=== PATIENT | female | born 1985 | race Caucasian/White ===

== ENCOUNTER 2017-08-15 09:44 | Emergency (ER) | payer OTHER ==
[~2017-08-15] VITALS: Ht 167.6 cm; Wt 76.7 kg
[2017-08-15] MEDS ORDERED: Norco 5-325 Ta1 EACH PO (10:19)
[2017-08-15] MEDS ORDERED: Augmentin 875-1 EACH PO (10:19)
[2017-08-15] MEDS ORDERED: MEDICAL MARIJUANA (10:46)
[2017-08-15] MEDS ORDERED: Bactrim Ds Tab1 EACH PO (10:56)
== END 2017-08-15 11:45 | disposition home or self-care (01) ==
LOC: ER 09:44
DX: N76.4 Abscess of vulva (principal); J45.909 Unspecified asthma, uncomplicated; F17.200 Nicotine dependence, unspecified, uncomplicated
CPT/HCPCS: 36415; 56420; 96374; 96375; 96376; 99284; J1170; J2060; J2405

== ENCOUNTER 2017-10-29 19:04 | Emergency (ER) | payer OTHER ==
[~2017-10-29] VITALS: Ht 167.6 cm; Wt 77.1 kg
[~2017-10-29 19:04] MED LIST: Augmentin 875-1 EACH PO; Bactrim Ds Tab1 EACH PO; MEDICAL MARIJUANA; Norco 5-325 Ta1 EACH PO
[2017-10-29] MEDS ORDERED: IBUP800 PO (19:19)
== END 2017-10-29 20:35 | disposition left against medical advice (07) ==
LOC: ER 19:04
DX: Z53.21 Procedure and treatment not carried out due to patient leaving prior to being seen by health care provider (principal)

== ENCOUNTER 2017-10-31 21:21 | Emergency (ER) | payer OTHER ==
[~2017-10-31] VITALS: Ht 167.6 cm; Wt 79.4 kg
[~2017-10-31 21:21] MED LIST changes: +IBUP800 PO
[2017-10-31] MEDS ORDERED: IBUP800 PO (23:05)
== END 2017-10-31 23:30 | disposition home or self-care (01) ==
LOC: ER 21:21
DX: M65.4 Radial styloid tenosynovitis [de Quervain] (principal); M67.449 Ganglion, unspecified hand; F17.210 Nicotine dependence, cigarettes, uncomplicated; Z91.013 Allergy to seafood
CPT/HCPCS: 73110; 73130